=== PATIENT | male | born 1960 | race Caucasian/White ===

== ENCOUNTER 2017-06-20 12:09 | Day surgery (SDC) | payer MEDICAID ==
[2017-06-20] MEDS ORDERED: MIDAZOLAM 2 MG/2 ML VIAL IVP PRN (12:32)
[2017-06-20] MEDS ORDERED: PROTAMINE SULFATE 50 MG/5 ML VIAL IVP PRN (12:32)
[2017-06-20] MEDS ORDERED: GLUCAGON HCL 1 MG VIAL IVP PRN (12:32)
[2017-06-20] MEDS ORDERED: HEPARIN 10,000 UNIT/10 ML MDV IVP PRN (12:32)
[2017-06-20] MEDS ORDERED: ALTEPLASE 2 MG VIAL IVP PRN (12:32)
[2017-06-20] MEDS ORDERED: NALOXONE HCL 0.4 MG/ML INJ IVP PRN (12:32)
[2017-06-20] MEDS ORDERED: FLUMAZENIL 0.5 MG/5 ML MDV IVP PRN (12:32)
[2017-06-20] MEDS ORDERED: fentaNYL 100 MCG/2 ML INJ IVP PRN (12:32)
[2017-06-20] MEDS ORDERED: MEPERIDINE 25 MG/ML SYR IVP PRN (12:32)
[2017-06-20] MEDS ORDERED: NS 1,000 ML IV SCH (12:45)
--- NOTE | 2017-06-20 14:06 | PDGENHP ---
History & Physical Chief Complaint: Neck pain History of Present Illness: 8/10 stabbing pain in midneck with rotation or extension. Pertinent Past, Social, Family History: Anterior cervical discectomy and fusion in 2015. Previous lumbar epidural injections by me, tolerated well, with good results. Relevant Physical Exam: I reviewed previous MRI, cervical CT, and cervial radiographs from [place] of April 2017.
[2017-06-20] MEDS ORDERED: LIDOCAINE 1% 300 MG/30 ML SDV ONE (14:36)
[2017-06-20] MEDS ORDERED: BUPIVACAINE 0.5% 30 ML SDV ONE (14:37)
[2017-06-20] MEDS ORDERED: DEPO METHYLPREDNISOLONE 80 MG/ML SDV ONE (14:37)
== END 2017-06-20 15:15 | disposition home or self-care (01) ==
LOC: FIMAGING 12:09
PROVIDERS: ATTEND Neurological Surgery
PROC: 3E0U3BZ Introduction of Anesthetic Agent into Joints, Percutaneous Approach (ICD-10-PCS; principal; 2017-06-20)
PROC: 3E0U33Z Introduction of Anti-inflammatory into Joints, Percutaneous Approach (ICD-10-PCS; principal; 2017-06-20)
DX: M54.2 Cervicalgia (principal); M50.30 Other cervical disc degeneration, unspecified cervical region; M54.81 Occipital neuralgia; M47.892 Other spondylosis, cervical region; Z98.1 Arthrodesis status
CPT/HCPCS: J1040

== ENCOUNTER → 2018-06-26 | Day surgery (SDC) | payer MEDICAID ==
[~2018-06-26] MED LIST: IOPAMIDOL (ISOVUE-M 300) 15 ML VIAL ONE; LIDOCAINE 1% 300 MG/30 ML SDV ONE; TRIAMCINOLONE ACETONIDE 200 MG/5 ML MDV IM ONE
== END | disposition home or self-care (01) ==
LOC: FIMAGING 13:27
PROVIDERS: ATTEND Neurological Surgery
DX: M54.16 Radiculopathy, lumbar region (principal)
CPT/HCPCS: J3301; Q9967